=== PATIENT | male | born 1960 | race Caucasian/White ===

== ENCOUNTER 2025-06-18 09:01 | Outpatient (REF) | payer OTHER, SELFPAY ==
[2025-06-18 13:05] LABS: MANUAL DIFF FLAG NO
[2025-06-18 13:15] LABS: Hematocrit 49.9 % (42.0-52.0); Hemoglobin 16.2 g/dl (14.0-18.0); Imm Gran Abs Auto 0.02 X10*3/uL (0.00-0.03); Imm Gran Pct Auto 0.3 % (0.0-0.4); Lymphocytes Absolute Auto 1.8 X10*3/uL (1.2-4.9); Mean Corpuscular HGB Conc 32.5 g/dl (31.0-36.0); Mean Corpuscular Hemoglobin 30.7 pg (27.0-33.0); Mean Corpuscular Volume 94.5 fL (80.0-98.0); NRBC Abs Auto 0.000 X10*3/uL (0.0-0.012); NRBC Pct Auto 0.0 /100WBC (0.0-0.2); Platelet Count 289 X10*3/uL (160-400); Red Blood Count 5.28 X10*6/uL (4.60-5.80); White Blood Count 6.0 X10*3/uL (4.8-10.8)
[2025-06-18 13:17] LABS: Appearance Urine Turbid; Glucose Urine UA Negative (Negative); PH 5.0 (5.0-9.0); Specific Gravity - Urine 1.025 (1.005-1.025)
[2025-06-18 14:58] LABS: Folate 9.1 ng/mL (> or = 4.0); Vitamin B12 381 pg/mL (200-900)
[2025-06-18 15:56] LABS: Anion Gap 12 (12-20)
[2025-06-18 16:01] LABS: Alanine Aminotransferase 21 U/L (0-40); Albumin Level 4.8 g/dL (3.5-5.0); Alkaline Phosphatase 63 U/L (39-117); Aspartate Amino Transferase 25 U/L (5-37); Blood Urea Nitrogen 15 mg/dL (9-16); Calcium 9.5 mg/dL (8.4-10.2); Carbon Dioxide 30 mmol/L (22-29); Chloride 104 mmol/L (96-108); Cholesterol 175 mg/dL (<200); Estimated Glomerular Filt Rate > 60; HDL Cholesterol 65 mg/dL (>40); Magnesium 2.0 mg/dL (1.6-2.6); Potassium 4.3 mmol/L (3.3-5.1); Sodium 142 mmol/L (135-145); Total Protein 7.9 g/dL (6.5-8.0); Triglycerides 115 mg/dL (<150)
[2025-06-19 04:36] LABS: Syphilis Screen Nonreactive (Nonreactive)
[2025-06-19 04:59] LABS: HBS Num1 0.00 mIU/mL (0-7.99); HBsAGNum1 0.32 S/CO (0.00-0.99); HIV Num 1 0.08 S/CO (0.00-0.99); Hepatitis B Surface Antigen Negative (Negative); ~HepC Num1 15.29 S/CO (0.00-0.79); ~Hepatitis B Surface Antibody NONREACTIVE (Nonreactive); ~Hepatitis C Antibody Reactive (Nonreactive)
[2025-06-24 11:57] LABS: Testosterone, Free 87.9 pg/mL (35.0-155.0)
[2025-06-24 15:09] LABS: VITAMIN D (1,25 OH) D3 42 pg/mL; Vit D (1,25-Dihydroxy) Total 42 pg/mL (18-72); Vitamin D (1,25 OH) D2 <8 pg/mL
== END 2025-06-18 09:02 | disposition home or self-care (01) ==
LOC: HO.HKASLDS 09:01
PROVIDERS: PCP Student in an Organized Health Care Education/Training Program; Visit Provider Student in an Organized Health Care Education/Training Program
DX: J45.20 Mild intermittent asthma, uncomplicated (principal); R03.0 Elevated blood-pressure reading, without diagnosis of hypertension; E66.811 Obesity, class 1; Z68.33 Body mass index [BMI] 33.0-33.9, adult; N52.9 Male erectile dysfunction, unspecified; L30.9 Dermatitis, unspecified; Z87.19 Personal history of other diseases of the digestive system; Z13.31 Encounter for screening for depression; Z13.39 Encounter for screening examination for other mental health and behavioral disorders; Z13.1 Encounter for screening for diabetes mellitus
CPT/HCPCS: 36415; 80053; 80061; 81003; 82607; 82652; 82746; 83036; 83735; 84402; 84403; 84443; 85025; 86706; 86780; 86803; 87340; 87389; 96127

== ENCOUNTER 2025-06-18 09:01 | Outpatient (AMB) | payer OTHER, SELFPAY ==
--- NOTE | 2025-06-18 09:04 | A.OFFPC_ITS ---
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 Intake Note: High BP/ Diabetes Curtain Mender Required: No Accompanied by: fiance Allergies No Known Allergies Allergy (Verified 06/18/25 09:09) Medication List - Last Reconciled 06/18/25 by Celio Austin MD triamcinolone acetonide 0.1% 1 appl topical DAILY Tobacco use date assessed: 06/18/25 Fall risk assessment: No Falls in past year Last assessed Fall Risk: 06/18/25 Dental Screening Dental Screen Date: 06/18/25 Did you have a dental visit in the last 12 months?: No Did you have a dental problem in the last 6 months where you did not have access to dental care?: No Was dental information given to patient?: Patient has dentist HPI HPI Comments History of Present Illness Details History of Present Illness The patient is a 65 year old individual presenting for a general health evaluation after a long period without medical care, with specific concerns about being overweight and having erectile dysfunction. Overweight: The patient is 6'1 and reports a weight of 252 lbs, acknowledging that this is overweight. The patient has been trying to eat right and goes to the gym but has been unable to lose abdominal weight. The patient is interested in medication for weight loss, specifically mentioning Wegovy, after seeing friends have success with similar drugs. The insurance will reportedly cover Wegovy until July. Erectile Dysfunction: The patient reports erectile dysfunction and has previously tried sildenafil (Viagra), which was discontinued due to side effects including seeing colors and heart palpitations. Following that, the patient used Trimix injections for approximately three years, which were initially effective. However, the condition worsened, requiring increased doses of Trimix, and a change in dose led to an episode of confusion and memory loss. The patient is now interested in a penile implant, having heard a positive review from a friend, and has previously inquired about it with another doctor and contacted a surgical center in [place]. Asthma: The patient has a history of asthma since childhood, which was asymptomatic for a period before returning in the 40s. The recurrence of symptoms was triggered after moving into a house with a dirt basement and acquiring a cat. The patient does not use an albuterol inhaler due to side effects of heart racing. 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 Eczema: The patient presents with dry skin patches, described as eczema, in various areas including behind the ears. The patient has previously used a cream for this condition and ran out. Surgical History: - Umbilical hernia repair: The patient h ad an initial repair years ago that was unsuccessful, followed by a second open procedure to correct it. - Dental implants: The patient has had i ndividual tooth implants. Medications: - The patient is not on any current regu lar medications. - Past use: Sildenafil (Viagra) for erec tile dysfunction, discontinued due to side effects. - Past use: Trimix injections for erecti le dysfunction, discontinued due to side effects. - Patient has an allergy to oxycodone/ac etaminophen (Percocet). Social History: - Tobacco use: Denies ever smoking. - Substance use: Denies current use; rep orts past use about 40 years ago. - Employment: Owns a [employer]. - Diet and Exercise: The patient reports trying to eat right and going to the gym, where the patient uses a treadmill. - Sleep: Reports disturbed sleep, typica lly falling asleep around 8-9 PM, waking at 1-2 AM and again at 4-4:30 AM to urinate, and not falling back asleep after the second awakening. Reports feeling well-rested despite this pattern. Family History: - Mother: History of multiple sclerosis (MS). - Father: Biological father's history is unknown. Diagnostic Results: - Colonoscopy: Performed 2-3 years ago, results were normal with no polyps found. - Sleep study: Performed in the past wit h normal results, showing no snoring or other issues. Past Medical History - Asthma since childhood, with a recurre nce in adulthood. - History of umbilical hernia, status po st two repairs. - Eczema. - Allergy to oxycodone/acetaminophen (Pe rcocet). - History of adverse reactions to flu an d pneumonia vaccines. - History of facial trauma resulting in an orbital fracture. - Hospitalization approximately 10-12 ye ars ago for an asthma attack secondary to carbon monoxide exposure. Health Maintenance - The patient has not seen a doctor in any years and presents for establishment of care and a comprehensive evaluation. - Colon Cancer Screening: Last colonosco py was 2-3 years ago and was normal with no polyps; next screening would be due in approximately 7-8 years. - Vaccinations: The patient declines vac cinations due to past adverse reactions to influenza and pneumonia shots. [facility] Medical History (Updated 06/18/25 @ 09:51 by Celio Austin MD) History of umbilical hernia Erectile dysfunction Eczema Mild intermittent asthma Surgical History (Updated 06/18/25 @ 09:11 by Sriram Melendrez CMA) History of hernia surgery Family History (Updated 06/18/25 @ 09:12 by Sriram Melendrez CMA) Mother Multiple sclerosis Social History (Updated 06/18/25 @ 09:12 by Sriram Melendrez CMA) Housing: House Alcohol intake: never Patient Tobacco Use Status: Never used Tobacco e-Cigarette/Vaping Use: Never Used Second Hand Smoke Exposure: No service: No Current occupational status: employed Current occupation: contractor Cognitive needs: No Hearing needs: No Vision needs: No Questionnaire PHQ-9 Over the last 2 weeks, how often have you been bothered by any of the following problems? 1. Little interest or pleasure in doing things: not at all 2. Feeling down, depressed, or hopeless: not at all 3. Trouble falling or staying asleep, or sleeping too much: not at all 4. Feeling tired or having little energy: not at all 5. Poor appetite or overeating: not at all 6. Feeling bad about yourself - or that you are a failure or have let yourself or your family down: not at all 7. Trouble concentrating on things, such as reading the newspaper or watching television: not at all 8. Moving or speaking so slowly that other people could have noticed. Or the opposite - being so fidgety or restless that you have been moving around a lot more than usual: not at all 9. Thoughts that you would be better off or of hurting yourself in some way: not at all Total score: 0 Depression Screening Interpretation: Negative Depression Screening Done: Yes [id number] - PHQ-9 [facility]: Yes Source: Developed by Drs. Guero Pereira, Lexus Duque, Jb Gallardo and colleagues, with an educational fritz from [employer]. Thrive Questionnaire Date Thrive assessed: 06/18/25 I am a: Patient What is your living situation today?: I have a steady place to live Within the past 12 months, did the food you bought not last and you didn't have the money to get more?: Never true Within the past 12 months, did you worry whether your food would run out before you got money to buy more?: Never true Do you have trouble paying for medicines?: No Do you have trouble getting transportation to medical appointments?: No Do you have trouble paying your heating and electricity bill?: No Do you have trouble taking care of your child, family member or friend?: No Are you currently unemployed and looking for a job?: No Are you interested in more education?: No Please select the resources that you would like help with: None Currently or been in a relationship where the following occur: No concerns reported THRIVE Score: 0 AUDIT C Alcohol Use Questionnaire (AUDIT-C) 1. How often do you have a drink containing alcohol?: Never Total Score: 0 WILLIE-7 AMB Questionnaire WILLIE-7 Date WILLIE - 7 assessed: 06/18/25 Feeling nervous, anxious, or on edge: 0 = Not at all Not being able to stop or control worryin = Not at all Worrying too much about different things: 0 = Not at all Trouble relaxin = Not at all Being so restless that it is hard to sit still: 0 = Not at all Becoming easily annoyed or irritable: 0 = Not at all Feeling afraid as if something awful might happen: 0 = Not at all Total WILLIE-7 score (0-4 normal; 5-9 mild; 10-14 moderate; 15-21 severe): 0 Source: Developed by Drs. Guero Pereira, Lexus Duque, Jb Gallardo and colleagues, with an educational fritz from [employer]. WILLIE-7 Assessment Billing WILLIE-7 Assessment Tool: WILLIE-7 Assessment 80017 Review of Systems Narrative Review of Systems - Constitutional: Reports feeling well rested. - Integumentary: Reports dry skin and eczema patches. - Neurological: Denies numbness in feet. Reports a past episode of confusion and memory loss after a Trimix injection. - Cardiovascular: Denies chest pain. Reports history of palpitations with albuterol and sildenafil. - Respiratory: Denies recent asthma attacks. - Gastrointestinal: Denies constipation and has regular bowel movements. - Genitourinary: Reports erectile dysfunction and nocturia, waking twice nightly to urinate. - Sleep: Reports waking multiple times at night but denies snoring or waking up gasping for air. 10-point ROS reviewed and negative except as noted in HPI Physical exam (Primary Care) Vital Signs: Last Vital Signs Temp 98.1 F 06/18/25 09:12 Pulse 58 06/18/25 09:12 Resp 18 06/18/25 09:12 BP 178/106 H 06/18/25 09:12 Pulse Ox 99 06/18/25 09:12 Oxygen Delivery Method Room Air 06/18/25 09:12 BMI result Body Mass Index 33.2 Tobacco/Smoking Status: Tobacco use Status Tobacco use date assessed 06/18/25 06/18/25 09:15 Patient Tobacco Use Status Never used Tobacco 06/18/25 09:15 e-Cigarette/Vaping Use Never Used 06/18/25 09:15 PHQ-9: PHQ-9 Score PHQ-9: Total score 0 06/18/25 09:33 Depression Screening Interpretation: Negative Thrive Assessment: Date of Thrive Assessment Date Thrive assessed 06/18/25 06/18/25 09:06 Currently or been in a relationship where the following occur: No concerns reported Narrative Physical Exam General: Well-appearing, in no acute distress. Vital signs: Within normal limits. HEENT: Normocephalic, atraumatic. PERRLA, EOMI. Conjunctiva clear, sclera anicteric. Oropharynx clear, mucous membranes moist. TMs intact bilaterally. Neck: Supple, no lymphadenopathy, no thyromegaly, no JVD or carotid bruits. Cardiovascular: RRR, normal S1/S2, no murmurs, rubs, or gallops. Peripheral pulses 2+ and symmetric. No edema. Respiratory: Lungs clear to auscultation bilaterally, no wheezes, rales, or rhonchi. Normal effort. Abdomen: Soft, non-tender, non-distended. Normoactive bowel sounds. No hepatosplenomegaly, no masses. MSK: Full range of motion, no joint swelling or deformity. Normal gait. Skin: Warm, dry, intact. No rashes, lesions, or pallor. Patches of dry skin noted, consistent with eczema. Neuro: Alert and oriented x3. Cranial nerves II-XII intact. Strength 5/5 throughout. Sensation intact. Reflexes 2+ symmetric. Normal coordination and gait. Psych: Appropriate mood and affect. Normal judgment and insight. Results AMB Hemoglobin A1c AMB Hemoglobin A1c 5.8 % Last Edit by Sriram Melendrez CMA on 06/18/25 09:30 Results Reviewed Results Reviewed: Laboratory Last Values Hgb A1c (Clinic) 5.8 % (4.0-6.0) 06/18/25 09:24 Coding Level of Care Code New Pt Level 4 (43521) Diagnoses Mild intermittent asthma J45.20 Elevated blood pressure reading R03.0 Class 1 obesity E66.811 Erectile dysfunction N52.9 History of umbilical hernia Z87.19 Eczema L30.9 Additional Codes WILLIE-7 Assessment Billing - WILLIE-7 Assessment Tool: WILLIE-7 Assessment [id number] ([id number]) PHQ-9 - 38759 - PHQ-9 Billing: Yes ([id number]) Assessment & Plan Assessment & Plan (1) Mild intermittent asthma: Code(s): J45.20 - Mild intermittent asthma, uncomplicated Category: Medical (2) Elevated blood pressure reading: Code(s): R03.0 - Elevated blood-pressure reading, without diagnosis of hypertension (3) Class 1 obesity: Code(s): E66.811 - Obesity, class 1 (4) Erectile dysfunction: Code(s): N52.9 - Male erectile dysfunction, unspecified Category: Medical (5) History of umbilical hernia: Code(s): Z87.19 - Personal history of other diseases of the digestive system Category: Medical (6) Eczema: Code(s): L30.9 - Dermatitis, unspecified Category: Medical Plan Consent The patient provided verbal consent for a physical examination during the visit. Patient was informed and verbally consented to the use of an ambient scribe for clinic note documentation during this visit. Plan 1. Establishment Of Care/Annual Physical - To establish a health baseline after a long period without medical care, a comprehensive set of laboratory tests was ordered. - Ordered labs include: complete blood count (CBC), comprehensive metabolic panel (CMP), urinalysis, thyroid panel, hemoglobin A1c, lipid panel, hepatitis B, hepatitis C, HIV, vitamin B12, folate, and vitamin D. - The patient will follow up in two weeks to review the results and formulate a further management plan. 2. Overweight - The patient's interest in weight loss medications like Wegovy (semaglutide) was acknowledged. - A detailed discussion was held regarding GLP-1 agonists, differentiating between semaglutide (Ozempic/Wegovy) and tirzepatide (Mounjaro/Zepbound) for diabetes versus weight loss indications. - The higher efficacy and smoother profile of tirzepatide were explained, along with challenges in insurance coverage for weight loss and [id number] cost options like [employer]. - The plan is to await lab results to rule out contraindications such as liver, kidney, or diabetic issues before considering a prescription. 3. Erectile Dysfunction - This is a significant concern for the patient. - The plan is to first obtain baseline labs, including testosterone levels, before proceeding with further evaluation and management. - Further discussion on treatment options, including the patient's interest in a penile implant, will occur at the follow-up visit after lab results are reviewed. 4. Eczema - Triamcinolone cream was prescribed to manage the dry skin patches and sent to [facility]. Discussion Notes I met the patient, a 65-year-old individual, for the first time for a general health assessment after a long absence from medical care. The patient's primary concerns are being overweight and having erectile dysfunction. I explained that before we address these specific issues, it is essential to establish a baseline health status by performing a comprehensive panel of blood tests to check liver and kidney function, screen for diabetes, and assess cholesterol, thyroid, and vitamin levels. Regarding the interest in weight loss medications, I provided a detailed overview of the available GLP-1 agonist options, semaglutide (Wegovy/Ozempic) and tirzepatide (Zepbound/Mounjaro). I explained the different brand names based on indication (weight loss vs. diabetes), the mechanisms of action, and the g eneral superiority of tirzepatide in terms of efficacy and side effect profile. We discussed the realities of insurance coverage, which often favors these drugs for diabetes, and the potential [id number] costs. For the patient's eczema, I prescribed triamcinolone cream. We have arranged for the lab work to be done today on-site, and a follow-up appointment is scheduled in two weeks to review all results and formulate a definitive plan for all concerns. Patient Instructions - Please go to our on-site lab today to have your blood drawn for the ordered tests. - Schedule a follow-up appointment with the hospital admissions officer to see me in two weeks to go over your lab results. - Use the prescribed triamcinolone cream for your dry skin (eczema) as directed. - We will discuss options for weight loss and erectile dysfunction in more detail at your next visit after we have your lab results. Medical Decision Making The patient is a 65-year-old individual presenting for [facility] of care after not having seen a physician for many years. The primary concerns are overweight and erectile dysfunction. Given the extended time since the patient's last medical evaluation, my priority is to establish a comprehensive health baseline before initiating treatment for specific complaints. I have ordered a CBC, CMP, urinalysis, HbA1c, lipid panel, thyroid studies, HIV/hepatitis screening, and vitamin levels (B12, D, folate) to screen for underlying conditions like anemia, renal or hepatic dysfunction, diabetes, dyslipidemia, and nutritional deficiencies that could be contributing to or be risk factors for the patient's presenting issues. This workup is crucial before considering GLP-1 agonists for weight management, as it will identify potential contraindications. The discussion about semaglutide and tirzepatide was for educational purposes to prepare the patient for potential options pending lab results. Similarly, management of erectile dysfunction requires an initial workup, including testosterone levels, before considering treatments beyond what the patient has already tried, especially given the side effects experienced with both sildenafil and Trimix. The patient's eczema was addressed with a prescription for topical triamcinolone. A follow-up in two weeks is scheduled to review all findings and develop a targeted, safe, and effective management plan. Total Time Statement 30 min Total time spent caring for the patient today includes pre-visit chart review, documentation, review of laboratory and diagnostic imaging results, medication reconciliation, medically necessary evaluation, counseling on diagnoses, care coordination, ordering appropriate tests and medications, review of tests performed by other providers, reporting test results to the patient, and co mmunication with other healthcare providers. Orders: Orders Complete Blood Count Auto Diff Today Z13.9 - Encounter for screening, unspecified Hepatitis B Surface Antigen Today Z13.9 - Encounter for screening, unspecified Syphilis Screen Today Z13.9 - Encounter for screening, unspecified Comprehensive Met. Panel Today Z13.9 - Encounter for screening, unspecified TSH reflex Free T4 Today Z13.9 - Encounter for screening, unspecified HIV Ab/Ag Today Z13.9 - Encounter for screening, unspecified UA CC w/rflx Micro + Cult Today Z13.9 - Encounter for screening, unspecified Lipid Panel Today Z13.9 - Encounter for screening, unspecified Vitamin B12 and Folate Today Z13.9 - Encounter for screening, unspecified Hemoglobin A1c Today Z13.9 - Encounter for screening, unspecified AMB Hemoglobin A1c Today Z13.9 - Encounter for screening, unspecified Hepatitis C Antibody Today Z13.9 - Encounter for screening, unspecified Magnesium Today Z13.9 - Encounter for screening, unspecified Vitamin D 1,25 dihydroxy Today Z13.9 - Encounter for screening, unspecified Hepatitis B Surface Antibody Today Z13.9 - Encounter for screening, unspecified Testosterone, Free/Total Today Z13.9 - Encounter for screening, unspecified Medications: New triamcinolone acetonide 0.1% 1 appl topical DAILY 80 grams 0RF L30.9 - Dermatitis, unspecified
[2025-06-18 09:12] VITALS: BP 178/106; PULSE 58; RESP 18; TEMP 36.7; O2SAT 99; BMI 33.2
--- OUTSIDE RECORDS SUMMARY | 2025-06-18 09:48 | XMS_ITS | Clinical Summary ---
Author Organization [facility] Address [address] [place] [address] Care Team Providers Care Store Receiving Clerk Name Role Phone Unavailable Primary Care Provider Unavailabl e Social History Tobacco Use Types Packs/Day Years Used Date Smoking Tobacco: Never Assessed Sex and Gender Information Value Date Recorded Sex Assigned at Not on file Legal Sex Male 1:05 PM EDT Gender Identity Not on file Sexual Orientation Not on file Plan of Treatment Health Maintenance Due Date Last Done Comments Hepatitis C Screening 1961 DTaP/Tdap/Td (1 - Tdap) 1979 Pneumococcal 50+ years (1 of 1 - PCV) 2011 Zoster (Shingrix) (1 of 2) 2011 COVID-19 Vaccine ( - 2024-2 6 season) 2025 Influenza (#1) 2025 RSV (1 - 1-dose 75+ series) 02/04/2036 HPV Vaccine (No Doses Required) Completed Hep A Aged Out No longer eligi ble based on patient's age to complete this topic Hep B Aged Out No longer eligi ble based on patient's age to complete this topic Hib Aged Out No longer eligi ble based on patient's age to complete this topic Meningococcal ACWY Aged Out No longer eligible based on patient's age to complete this topic Zoster (Zostavax) Discontinued
--- OUTSIDE RECORDS SUMMARY | 2025-06-18 09:48 | XMS_ITS | Clinical Summary ---
Author Organization [facility] Address [address] [place] [address] Care Team Providers Care [employer] Developer Name Role Phone Ref, Has No Pcp Or Primary Care Provider Unavail able Allergies Active Allergy Reactions Criticality Noted Date Comments Albuterol Dyspnea High 10/02/2024 Medications albuterol (PROAIR HFA,VENTOLIN HFA) 90 mcg inhaler Inhale 2 puffs (180 mcg total) by mouth every 4 hours as needed for wheezing or shortness of breath. Use with spacer. 18 g 5 Active inhalational spacing device (Aerochamber MV) Use as directed. 1 each 5 Active Active Problems Problem Noted Date Diagnosed Date Asthma 11/25/2009 Chronic Hepatitis, C Virus 11/25/2009 Umbilical Hernia 11/25/2009 Benign Essential Hypertension 03/27/2009 Social History Tobacco Use Types Packs/Day Years Used Date Smoking Tobacco: Never Assessed Sex and Gender Information Value Date Recorded Sex Assigned at Male 10/02/2024 12:18 AM EDT Legal Sex Male 4:52 AM EDT Gender Identity Not on file Sexual Orientation Not on file Last Filed Vital Signs Vital Sign Reading Time Taken Comments Blood Pressure 168/105 10/02/2024 1:15 AM EDT Pulse 57 10/02/2024 12:41 AM EDT Temperature 36.7 C (98.1 F) 10/02/2024 12:45 AM EDT Respiratory Rate 18 10/02/2024 12:45 AM EDT Oxygen Saturation 95% 10/02/2024 1:30 AM EDT Inhaled Oxygen Concentration - - Weight 111.1 kg (245 lb) 10/02/2024 12:45 AM EDT Height 185.4 cm (6' 1 ) 10/02/2024 12:45 AM EDT Body Mass Index 32.32 10/02/2024 12:45 AM EDT Plan of Treatment Health Maintenance Due Date Last Done Comments Cologuard 1961 Colon Cancer Screening 1961 Colonoscopy 1961 FOBT / Fit Test 1961 HIV Screening 1961 Sigmoidoscopy 1961 Pneumococcal Vaccine: 50+ Ye ars (1 of 2 - PCV) 02/04/1980 DTaP,Tdap,and Td Vaccines (1 - Tdap) 1983 RSV Vaccine (60+ years old a nd patients) (1 - Risk 50-74 years 1-dose series) 2011 Zoster Vaccines (1 of 2) 2011 Hepatitis B Vaccines (1 of 3 - Risk 3-dose series) 2021 Alcohol/Substance Use Screening 07/26/2024 Depression Screening and Follow-Up 07/26/2024 Social Drivers of Health Joanie ual Screening 07/26/2024 Influenza Vaccine (#1) 2025 COVID-19 Vaccine ( - season) 2025 Basic Metabolic Panel 10/02/2025 10/02/2024 , 10/10/2022, 10/10/2022 Diabetes Screening 10/03/2027 10/02/2024, 0 10/10/2022, 10/10/2022 Procedures * Due to [place] law, this organization might not be sharing negative HIV tests. Procedure Name Priority Date/Time Associated Diagnosis Comments BASIC METABOLIC PANEL STAT 10/02/2024 12:33 AM EDT from Last 3 Months or Most Recently Relevant to Health Maintenance Results * Due to [place] law, this organization might not be sharing negative HIV tests. * (ABNORMAL) Basic Metabolic Panel (10/02/2024 12:33 AM EDT) NA 138 136 - 145 mmol/L 10/02/2024 1:19 AM EDT [facility] K 4.0 3.5 - 5.1 mmol/L 10/02/2024 1:19 AM EDT [facility] Cl 100 98 - 109 mmol/L 10/02/2024 1:19 AM EDT [facility] CO2 28 22 - 32 mmol/L 10/02/2024 1:19 AM EDT [facility] BUN 15 8 - 23 mg/dL 10/02/2024 1:19 AM EDT [facility] Creatinine 1.09 0.50 - 1.12 mg/dL 10/02/2024 1:19 AM EDT [facility] Glucose 103(H) 60 - 99 mg/dL 10/02/2024 1:19 AM EDT [facility] Calcium 9.5 8.4 - 10.4 mg/dL 10/02/2024 1:19 AM EDT [facility] Anion Gap 14 >=0 10/02/2024 1:19 AM EDT [facility] eGFR 76 >=60 mL/min/1. 73m2 10/02/2024 1:19 AM EDT [facility] Comment:The estimated glomer ular filtration rate (eGFR) is calculated using a new formula developed by the NKF-ASN task force to eliminate race-based correction factors. The new formula uses serum/plasma creatinine, age, and gender to determine eGFR. A value below 60mls/min might indicate kidney disease and will be flagged. For additional information, see Walters et al, Am J Kidney Dis. 2021;79(2):268- 288, A Unifying Approach for GFR estimation: Recommendations of the NKF-ASN Task Force on Reassessing the Inclusion of Race in Diagnosing Kidney Disease . Blood Structure of peripheral vein / Unknown Venipuncture / Unknown 10/02/2024 12:33 AM EDT 10/02/2024 12:39 AM EDT us Elmer Matute MD LAB BLOOD ORDERABLES F inal Result [facility] [address] [place] [address] [address] [place] [address], [place] [phone] from Last 3 Months or Most Recently Relevant to Health Maintenance Advance Directives Documents on File Type Date Recorded Patient Tunnel Mucker Expl anation Health Care Proxy 08/25/2021 Health Care Proxy 08/25/2021 Health Care Proxy 08/25/2021 Health Care Proxy 08/25/2021 Health Care Proxy 08/25/2021 Advance Directive 07/23/2021 5:07 PM Advance Directive 08/02/2009 12:00 AM [facility] dical Dec Making (Adv.Dir) Care Teams [employer] Developer Relationship Specialty Start Date End Date Ref, Has No Pcp Or DO NOT EDIT THIS RECORD VIA PROVIDER ON THE FLY PCP - General 02/11/17
[2025-06-18 09:50] VITALS: BP 150/84
== END 2025-06-18 09:52 | disposition home or self-care (01) ==
LOC: HO.HMCFMS 09:02
PROVIDERS: PCP Student in an Organized Health Care Education/Training Program; Visit Provider Student in an Organized Health Care Education/Training Program
DX: J45.20 Mild intermittent asthma, uncomplicated (principal); R03.0 Elevated blood-pressure reading, without diagnosis of hypertension; E66.811 Obesity, class 1; N52.9 Male erectile dysfunction, unspecified; Z87.19 Personal history of other diseases of the digestive system; L30.9 Dermatitis, unspecified

== ENCOUNTER 2025-07-03 08:26 | Outpatient (REF) | payer OTHER, SELFPAY ==
[2025-07-05 22:48] LABS: HCV Log PCR <1.18 NOT DETECTED Log IU/mL (NOT DETECTED); HepC Viral Load <15 NOT DETECTED IU/mL (NOT DETECTED)
== END 2025-07-03 08:27 | disposition home or self-care (01) ==
LOC: HO.HKASLDS 08:26
PROVIDERS: PCP Student in an Organized Health Care Education/Training Program; Visit Provider Student in an Organized Health Care Education/Training Program
DX: R76.89 Other specified abnormal immunological findings in serum (principal); R73.03 Prediabetes; E66.811 Obesity, class 1; N52.9 Male erectile dysfunction, unspecified; L30.9 Dermatitis, unspecified; R03.0 Elevated blood-pressure reading, without diagnosis of hypertension
CPT/HCPCS: 36415; 87522; 90471; 96127

== ENCOUNTER 2025-07-03 08:26 | Outpatient (AMB) | payer OTHER, SELFPAY ==
[2025-07-03 08:44] VITALS: BP 180/102; PULSE 52; TEMP 36.7; O2SAT 97; BMI 33.5
--- NOTE | 2025-07-03 08:44 | MHC.PC.OV ---
Vital Signs 07/03/25 08:44 Height 6 ft 1 in Weight 254 lb BMI 33.5 BP 180/102 H Blood Pressure Location Rt brachial Position Sitting Pulse 52 Pulse Source Pulse Oximeter Temp 98.1 F Temp Source Oral Pulse Oximetry (%) 97 Oxygen Delivery Method Room Air Intake Visit Reasons: 2 week follow up Accompanied by: Self / Same As Patient Allergies No Known Allergies Allergy (Verified 07/03/25 08:45) Medication List - Last Reconciled 07/03/25 by Celio Austin MD triamcinolone acetonide 0.1% 1 appl topical DAILY Tobacco use date assessed: 06/27/25 Fall risk assessment: No Falls in past year Last assessed Fall Risk: 07/03/25 Dental Screening Dental Screen Date: 07/03/25 Did you have a dental visit in the last 12 months?: Yes HPI HPI Comments History of Present Illness Details History of Present Illness The patient is a 65 year old male presenting for follow-up to review lab results and manage multiple chronic conditions. Hypertension: The patient has elevated blood pressure readings, with today's measurement at 180 mmHg systolic, which is higher than the previous reading of 150 mmHg. Prediabetes: The patient's Hemoglobin A1c is 5.8%, placing him in the prediabetic range of 5.7% to 6.4%. He reports concerns about developing diabetes and has previously seen a extrusion process operator for dietary guidance, although he found it difficult to follow the plan. History of Hepatitis C infection: The patient has a history of Hepatitis C, diagnosed over 20 years ago by his project systems engineer, which he believes he contracted from sharing a rolled-up bill for snorting cocaine. An initial treatment attempt with a medication was stopped due to severe side effects that he felt almost killed him. About four years later, he was treated with a newer medication for a short period, and subsequent blood tests, including a viral load, showed the virus was gone. He reports he was not a big drinker and none of his partners contracted the virus. Overweight: The patient is concerned about his weight and is seeking help with weight loss. He reports exercising daily, including 30 minutes on the treadmill and using weight machines for his stomach, legs, and arms. Erectile dysfunction: The patient reports erectile dysfunction and is interested in a referral to an ED clinic for evaluation and treatment suggestions. Medications: - Paxlovid: taken previously for a COVID infection. Social History: - Past Substance Use: Reports a history of cocaine use by snorting. - Alcohol Use: Reports he was never a big drinker. - Exercise: Exercises daily, including 30 minutes on a treadmill and using weight machines for stomach, legs, and arms. - Diet: Acknowledges needing to reduce carbohydrates and sugars, and increase greens and proteins. - He has previously seen a extrusion process operator but found it difficult to adhere to the recommended diet. Diagnostic Results: - Hemoglobin A1c: 5.8%, which is in the prediabetic range. - Vitamin B12: 381, which is on the low side of the normal range (200-700). - Hepatitis C antibody: Positive. - HIV: Negative. - Complete Blood Count: White blood cell count, red blood cell count, and hemoglobin are normal. - Lipid panel: Normal. - Testosterone: Low (per patient report of a previous result). Past Medical History - Hepatitis C: Diagnosed over 20 years ago, treated successfully with medication after an initial failed treatment attempt. - COVID-19: History of infection, treated with Paxlovid. - Asthma: Reported history. Health Maintenance [facility] Medical History (Updated 07/03/25 @ 18:39 by Celio Austin MD) Elevated BP without diagnosis of hypertension Class 1 obesity Hepatitis C antibody positive Prediabetes History of umbilical hernia Erectile dysfunction Eczema Mild intermittent asthma Surgical History History of hernia surgery Family History Mother Multiple sclerosis Social History Housing: House Alcohol intake: never Patient Tobacco Use Status: Never used Tobacco e-Cigarette/Vaping Use: Never Used Second Hand Smoke Exposure: No service: No Current occupational status: employed Current occupation: contractor Cognitive needs: No Hearing needs: No Vision needs: No Questionnaire PHQ-9 Over the last 2 weeks, how often have you been bothered by any of the following problems? 1. Little interest or pleasure in doing things: not at all 2. Feeling down, depressed, or hopeless: not at all 3. Trouble falling or staying asleep, or sleeping too much: not at all 4. Feeling tired or having little energy: not at all 5. Poor appetite or overeating: not at all 6. Feeling bad about yourself - or that you are a failure or have let yourself or your family down: not at all 7. Trouble concentrating on things, such as reading the newspaper or watching television: not at all 8. Moving or speaking so slowly that other people could have noticed. Or the opposite - being so fidgety or restless that you have been moving around a lot more than usual: not at all 9. Thoughts that you would be better off or of hurting yourself in some way: not at all Total score: 0 Depression Screening Interpretation: Negative Depression Screening Done: Yes 05835 - PHQ-9 Billing: Yes Source: Developed by Drs. Guero Pereira, Lexus Duque, Jb Gallardo and colleagues, with an educational fritz from [employer]. Thrive Questionnaire Date Thrive assessed: 07/03/25 I am a: Patient What is your living situation today?: I have a steady place to live Within the past 12 months, did the food you bought not last and you didn't have the money to get more?: Never true Within the past 12 months, did you worry whether your food would run out before you got money to buy more?: Never true Do you have trouble paying for medicines?: No Do you have trouble getting transportation to medical appointments?: No Do you have trouble paying your heating and electricity bill?: No Do you have trouble taking care of your child, family member or friend?: No Are you currently unemployed and looking for a job?: No Are you interested in more education?: No Please select the resources that you would like help with: None Currently or been in a relationship where the following occur: No concerns reported THRIVE Score: 0 AUDIT C Alcohol Use Questionnaire (AUDIT-C) 1. How often do you have a drink containing alcohol?: Never Total Score: 0 WILLIE-7 AMB Questionnaire WILLIE-7 Date WILLIE - 7 assessed: 07/03/25 Feeling nervous, anxious, or on edge: 0 = Not at all Not being able to stop or control worryin = Not at all Worrying too much about different things: 0 = Not at all Trouble relaxin = Not at all Being so restless that it is hard to sit still: 0 = Not at all Becoming easily annoyed or irritable: 0 = Not at all Feeling afraid as if something awful might happen: 0 = Not at all Total WILLIE-7 score (0-4 normal; 5-9 mild; 10-14 moderate; 15-21 severe): 0 Source: Developed by Drs. Guero Pereira, Lexus Duque, Jb Gallardo and colleagues, with an educational fritz from [employer]. WILLIE-7 Assessment Billing WILLIE-7 Assessment Tool: WILLIE-7 Assessment 35756 Review of Systems Narrative Review of Systems - Endocrine: Denies symptoms of diabetes. - Genitourinary: Reports erectile dysfunction. - Respiratory: History of asthma. 10-point ROS reviewed and negative except as noted in HPI Physical exam (Primary Care) Vital Signs: Last Vital Signs Temp 98.1 F 07/03/25 08:44 Pulse 52 07/03/25 08:44 BP 180/102 H 07/03/25 08:44 Pulse Ox 97 07/03/25 08:44 Oxygen Delivery Method Room Air 07/03/25 08:44 BMI result Body Mass Index 33.5 Tobacco/Smoking Status: Tobacco use Status Tobacco use date assessed 06/27/25 07/03/25 08:46 Patient Tobacco Use Status Never used Tobacco 07/03/25 08:46 e-Cigarette/Vaping Use Never Used 07/03/25 08:46 PHQ-9: PHQ-9 Score PHQ-9: Total score 0 07/03/25 08:48 Depression Screening Interpretation: Negative Thrive Assessment: Date of Thrive Assessment Date Thrive assessed 07/03/25 07/03/25 08:46 Currently or been in a relationship where the following occur: No concerns reported Narrative Physical Exam General: Well-appearing, in no acute distress. Vital signs: Blood pressure elevated at 180. HEENT: Normocephalic, atraumatic. PERRLA, EOMI. Conjunctiva clear, sclera anicteric. Oropharynx clear, mucous membranes moist. TMs intact bilaterally. Neck: Supple, no lymphadenopathy, no thyromegaly, no JVD or carotid bruits. Cardiovascular: RRR, normal S1/S2, no murmurs, rubs, or gallops. Peripheral pulses 2+ and symmetric. No edema. Respiratory: Lungs clear to auscultation bilaterally, no wheezes, rales, or rhonchi. Normal effort. Abdomen: Soft, non-tender, non-distended. Normoactive bowel sounds. No hepatosplenomegaly, no masses. MSK: Full range of motion, no joint swelling or deformity. Normal gait. Skin: Warm, dry, intact. No rashes, lesions, or pallor. Neuro: Alert and oriented x3. Cranial nerves II-XII intact. Strength 5/5 throughout. Sensation intact. Reflexes 2+ symmetric. Normal coordination and gait. Psych: Appropriate mood and affect. Normal judgment and insight. Office Procedures Flu Questionnaire Does the patient have a severe egg allergy?: No Does the patient have severe life threatening allergies?: No Does the patient have a fever or illness today?: No Has the patient ever had Guillain-Shirley Syndrome?: No Has the patient ever had any past reaction to a flu shot?: No Immunizations Fluarix [id number] (PF) 45 mcg (15 mcg x 3)/0.5 mL IM syringe Performing Provider: Celio Austin MD [place] Documented (not given) by: Florinda Grant CMA on 07/03/25 08:58 Reason Not Given: Patient Refused Coding Level of Care Code Est Pt Level 3 (56791) Diagnoses Prediabetes R73.03 Class 1 obesity E66.811 Hepatitis C antibody positive R76.89 Erectile dysfunction N52.9 Eczema L30.9 Elevated BP without diagnosis of hypertension R03.0 Additional Codes WILLIE-7 Assessment Billing - WILLIE-7 Assessment Tool: WILLIE-7 Assessment [id number] ([id number]) PHQ-9 - 60921 - PHQ-9 Billing: Yes ([id number]) Assessment & Plan Assessment & Plan (1) Prediabetes: Code(s): R73.03 - Prediabetes Category: Medical (2) Class 1 obesity: Code(s): E66.811 - Obesity, class 1 Category: Medical (3) Hepatitis C antibody positive: Code(s): R76.89 - Other specified abnormal immunological findings in serum Category: Medical (4) Erectile dysfunction: Code(s): N52.9 - Male erectile dysfunction, unspecified Category: Medical (5) Eczema: Code(s): L30.9 - Dermatitis, unspecified Category: Medical (6) Elevated BP without diagnosis of hypertension: Code(s): R03.0 - Elevated blood-pressure reading, without diagnosis of hypertension Category: Medical Plan Consent The patient provided verbal consent to proceed with a viral load test for Hepatitis C. Patient was informed and verbally consented to the use of an ambient scribe for clinic note documentation during this visit. Plan 1. Hypertension - The patient was provided with a blood pressure log and instructed to monitor his blood pressure at home twice daily (morning and night) for two weeks. - Instructions were given to sit with back support, feet flat on the floor, and arm supported at heart level while taking the reading. - The patient will return with the readings before initiating antihypertensive medication. 2. Prediabetes - The patient was educated on his HbA1c of 5.8% and its significance. - A referral will be placed for a registered dietitian to provide education on lifestyle and dietary changes. - Dietary advice included reducing carbohydrates such as white bread, white rice, and pasta, cutting down on sugars, and increasing intake of greens and proteins. 3. Vitamin B12 Deficiency - A prescription for Vitamin B12 supplementation will be sent to the pharmacy for the patient to take one tablet every night. 4. History Of Hepatitis C Infection - A lab order will be placed for a Hepatitis C viral load to confirm the infection is not active. - Patient was educated that the hepatitis C antibody test will always be positive due to his body's memory of the exposure. 5. Overweight - A referral will be placed to the medical weight clinic for a comprehensive overview and assistance with weight loss. 6. Erectile Dysfunction - An open referral to a urologist will be provided for evaluation and management. Discussion Notes I reviewed the patient's lab results with him, noting his blood pressure of 180 systolic was high. We discussed a plan to monitor his blood pressure at home for two weeks before considering medication, to avoid a premature diagnosis or treatment of hypertension. I informed him that his hemoglobin A1c of 5.8% places him in the prediabetic range and discussed the importance of lifestyle changes, including diet and exercise. I explained his vitamin B12 level of 381 is on the lower side of normal and that I would prescribe a supplement to replenish it. We addressed the positive hepatitis C antibody test result. I explained that this indicates past exposure and that the antibody test will always be positive, but a viral load test can determine if the infection is currently active. The patient agreed to a viral load test for confirmation. Regarding his concerns about weight, I recommended a referral to our medical weight clinic for a comprehensive approach, emphasizing that lifestyle changes are crucial for long-term success, rather than relying solely on medications like Wegovy. Finally, I provided an open referral to a urologist for his concerns about erectile dysfunction. Patient Instructions - Take your blood pressure at home every morning and every night for two weeks using the blood pressure log provided. - When checking your blood pressure, sit in a chair with back support, keep your feet flat on the floor, and rest your arm on a table at heart level. - You will be contacted by a extrusion process operator to schedule an appointment to discuss your diet. - Reduce your intake of sugar and carbohydrates like white bread, white rice, and pasta, and increase your intake of greens and proteins. - supervisor tubing the Vitamin B12 prescription from your pharmacy and take one tablet every night. - Go for the ordered blood work, which will include a test to check if the Hepatitis C virus is active. - You will be contacted by the medical weight clinic to schedule an appointment. - You will receive an open referral for a urologist to address erectile dysfunction, and you can choose where to go. Medical Decision Making The patient is a 65-year-old male with multiple active issues, including significantly elevated blood pressure, prediabetes, and a history of Hepatitis C. The elevated blood pressure reading of 180 systolic is concerning, but given the potential for white coat hypertension, I am deferring initiation of antihypertensive medication pending a two-week home blood pressure log to establish a baseline and confirm sustained hypertension. His HbA1c of 5.8% confirms prediabetes, and the management strategy is focused on lifestyle modification as the first-line approach. A referral to a registered dietitian is intended to provide structured education and support, which may be more effective than his previous informal attempts. The patient's positive Hepatitis C antibody with a history of successful treatment requires confirmation of current viral suppression. Ordering a viral load is the standard of care to ensure he does not have a chronic, active infection. His low-normal Vitamin B12 level warrants supplementation to prevent potential neurological or hematological complications. For his concerns about weight and erectile dysfunction, specialty referrals to a medical weight clinic and a urologist, respectively, are the most appropriate next steps to provide comprehensive, expert-led evaluation and management. Total Time Statement 20 min Total time spent caring for the patient today includes pre-visit chart review, documentation, review of laboratory and diagnostic imaging results, medication reconciliation, medically necessary evaluation, counseling on diagnoses, care coordination, ordering appropriate tests and medications, review of tests performed by other providers, reporting test results to the patient, and communication with other healthcare providers. Orders: Orders Influenza [id number] Immunization Today Z23 - Encounter for immunization Hepatitis C Viral Load Today R76.89 - Other specified abnormal immunological findings in serum Referrals Urology Referral N52.9 - Male erectile dysfunction, unspecified Medical Weight Management Referral E66.811 - Obesity, class 1
== END 2025-07-03 09:23 | disposition home or self-care (01) ==
LOC: HO.HMCFMS 08:26
PROVIDERS: PCP Student in an Organized Health Care Education/Training Program; Visit Provider Student in an Organized Health Care Education/Training Program
DX: R73.03 Prediabetes (principal); E66.811 Obesity, class 1; R76.89 Other specified abnormal immunological findings in serum; N52.9 Male erectile dysfunction, unspecified; L30.9 Dermatitis, unspecified; R03.0 Elevated blood-pressure reading, without diagnosis of hypertension; Z23 Encounter for immunization